=== PATIENT | female | born 1950 | race Caucasian/White ===

== ENCOUNTER → 2022-04-13 | Day surgery (SDC) | payer OTHER ==
[2022-04-05 14:45] LABS: BASOPHILS % 0.5 % (0.0-1.0); EOSINOPHILS % 0.5 % (0.0-6.0); HEMATOCRIT 29.5 % (34.2-44.1); HEMOGLOBIN 9.3 g/dL (12.0-16.0); LYMPHOCYTES # (AUTO) 2.4 (1.0-3.2); LYMPHOCYTES % 32.9 % (18.0-39.1); MEAN CORPUSCULAR HEMOGLOBIN 31.2 pg (28-32); MEAN CORPUSCULAR HGB CONC 31.5 g/dL (31-35); MONOCYTES # (AUTO) 0.5 (0.2-0.8); MONOCYTES % 7.2 % (4.4-11.3); NEUTROPHILS # (AUTO) 4.3 (2.1-6.9); NEUTROPHILS % 58.5 % (38.7-80.0); PLATELET COUNT 140 x10e3/uL (140-360); RED BLOOD COUNT 2.98 x10e6/uL (3.6-5.1); RED CELL DISTRIBUTION WIDTH 14.2 % (11.7-14.4)
[~2022-04-13] MED LIST: ALLOPURINOL100 MG PO; ALLOPURINOL300 MG PO; ASA325 PO; ASPIR-LOW81 MG PO; ASPIRIN81 MG PO; ATENOLOL50 MG PO; BACLOFEN10 MG PO; BREO ELLIPTA INH; CALCIUM + VITA1 EACH PO; CLONIDINE HCL0.2 MG PO; CYCLOBENZAPRINE10 MG PO; DIOVAN160 MG PO; DIPHENHYDRAMINE25 M2 PO; DOCUSATE SODIU100 MG PO; FENTANYL CITRATE/PF 100MCG/2 ML INJ ONE; FERROUS SULFAT324 MG PO; FEXOFENADINE H180 MG PO; FUROSEMIDE20 MG PO; FUROSEMIDE40 MG PO; GABAPENTIN100 MG PO; GABAPENTIN300 MG PO; GLIMEPIRIDE1 MG PO; GLIMEPIRIDE2 MG PO; INCRUSE ELLIPTA INH; KERENDIA10 MG PO; LEVOTHYROXINE75 MCG PO; LIDOCAINE HCL 2% LOCAL INJ 5 ML SDV VIAL INJ ONE; LIPITOR10 MG PO; MAGNESIUM400 MG PO; METOFORMIN PO; METOPROLOL SUCC25 MG PO; NORCO 7.5-3251 EACH PO; OMEPRAZOLE40 MG PO; POTASSIUM99 M1 PO; PRAVASTATIN SOD20 MG INH; PRAVASTATIN SOD40 MG PO; PROAIR HFA INH8.5 GM PO; PROPOFOL IV EMULSION 10 MG/ML 50 ML VIAL IV ONE; TRILYTE PO; ULTRAM 50MG50 MG PO; VITAMIN C1000 MG PO; VITAMIN D PO; ZESTRIL20 MG PO
[2022-04-13 07:45] VITALS: BP 138/67
== END | disposition home or self-care (01) ==
LOC: OR 06:00
PROVIDERS: ATTEND Internal Medicine Gastroenterology
DX: K29.50 Unspecified chronic gastritis without bleeding (principal); Z86.010 Personal history of colon polyps; K21.9 Gastro-esophageal reflux disease without esophagitis; K64.8 Other hemorrhoids; D50.9 Iron deficiency anemia, unspecified; E11.9 Type 2 diabetes mellitus without complications; E78.00 Pure hypercholesterolemia, unspecified; I10 Essential (primary) hypertension; J44.9 Chronic obstructive pulmonary disease, unspecified; E03.9 Hypothyroidism, unspecified; M10.9 Gout, unspecified; Z88.6 Allergy status to analgesic agent; Z91.041 Radiographic dye allergy status; Z91.040 Latex allergy status; Z88.0 Allergy status to penicillin; Z91.013 Allergy to seafood; Z01.810 Encounter for preprocedural cardiovascular examination; Z01.812 Encounter for preprocedural laboratory examination; Z79.82 Long term (current) use of aspirin; Z79.84 Long term (current) use of oral hypoglycemic drugs; Z79.899 Other long term (current) drug therapy; Z68.42 Body mass index [BMI] 45.0-49.9, adult; Z87.891 Personal history of nicotine dependence
CPT/HCPCS: 36415; 43239; 45378; 82948; 85025; 88304; 88305; 88312; 88342; 93005; J2001